=== PATIENT | male | born 1990 | race Caucasian/White ===

== ENCOUNTER 2017-01-08 16:35 | Emergency (ER) | payer OTHER | END 2017-01-08 21:00 | disposition home or self-care (01) | LOC: ER1 16:35 | DX: S53.401A Unspecified sprain of right elbow, initial encounter (principal); F17.200 Nicotine dependence, unspecified, uncomplicated; V89.2XXA Person injured in unspecified motor-vehicle accident, traffic, initial encounter; Y92.410 Unspecified street and highway as the place of occurrence of the external cause | CPT/HCPCS: 70450; 72125; 73030; 73080; 99284 ==